=== PATIENT | male | born 1990 | race Caucasian/White ===

== ENCOUNTER 2025-02-12 03:32 | Emergency (ER) | payer BC ==
[~2025-02-12] VITALS: Ht 182.9 cm; Wt 90.7 kg
[2025-02-12] MEDS: LACTATED RINGERS 1000ML IV STA (04:29)
--- NOTE | 2025-02-12 04:41 | ERN ---
General Chief Complaint: Withdrawl Stated Complaint: WITHDRAWL SYMPTOMS FROM ALCOHOL Time Seen by MD: 03:49 Source: patient History of Present Illness Initial Comments Patient is a 34-year-old male with a tension deficit disorder anxiety and depression comes to the ED to get his prescriptions filled and also to withdrawal from alcohol. He has not had an alcoholic beverage for two days and he is starting to feel anxious with nausea and vomiting diarrhea possible hallucinations. He is concerned about having seizures as well. Allergies: Coded Allergies: No Known Allergies (Unverified Allergy, Unknown, 02/12/25) Past Medical History Past Medical History: No Pertinent History, Anxiety, Depression Medical History Other: ADHD, Past Surgical History: None Constitutional: (-) chills, (-) diaphoresis, (-) fever, (-) malaise, (-) weakness, (-) other documentation EENTM: (-) eye pain, (-) blurred vision, (-) tearing, (-) double vision, (-) ear pain, (-) ear discharge, (-) nose pain, (-) nose congestion, (-) throat pain, (-) Throat swelling, (-) mouth pain, (-) tooth pain, (-) mouth swelling, (-) other documentation Respiratory: (-) cough, (-) orthopnea, (-) short of breath, (-) stridor, (-) wheezing, (-) other documentation Cardiovascular: (-) chest pain, (-) edema, (-) palpitations, (-) syncope, (-) dyspnea on exertion, (-) other documentation Gastrointestinal/Abdominal: (+) nausea, (+) vomiting Musculoskeletal: (-) Neck pain, (-) back pain, (-) Flank Pain, (-) joint pain, (-) joint swelling, (-) muscle pain, (-) muscle stiffness, (-) gout, (-) other documentation Skin: (-) laceration, (-) contusion, (-) abrasion, (-) abscess, (-) rash, (-) change in color, (-) change in hair, (-) change in nails, (-) diaphoresis, (-) dryness, (-) other documentation Physical Exam General Appearance: (+) moderate distress Orientation: (+) oriented x 3 Head/Face Trauma: No Eye: bilateral eye normal inspection, bilateral eye PERRL, bilateral eye EOMI Ear, Nose, Throat: (+) hearing grossly normal, (+) normal ENT inspection, (+) moist mucous membraine Neck: (+) normal inspection, (+) supple Respiratory: (+) chest non-tender, (+) lungs clear, (+) well ventilated Heart: (+) regular, (+) no gallop Vascular: (+) no edema, (+) normal peripheral pulse Gastrointestinal: (+) soft, (+) non-tender, (+) bowel sound present Results Laboratory and Microbiology Lab and Micro Result Laboratory Tests Test 02/12/25 04:23 White Blood Count 8.6 K/uL (4.8-10.8) Red Blood Count 4.38 MIL/uL (4.50-6.20) L Hemoglobin 13.4 g/dL (14.0-18.0) L Hematocrit 38.9 % (42-54) L Mean Corpuscular Volume 88.8 fL (79-99) Mean Corpuscular Hemoglobin 30.6 pg (27.0-33.0) Mean Corpuscular Hemoglobin Concent 34.4 g/dL (32.0-36.0) Red Cell Distribution Width 13.2 % (11.0-15.5) Platelet Count 384 K/uL (130-400) Mean Platelet Volume 10.0 fL (7.5-10.5) Immature Granulocyte % (Auto) 0.5 % (0-1) Neutrophils (%) (Auto) 65.6 % (40.0-77.0) Lymphocytes (%) (Auto) 27.4 % (21.0-51.0) Monocytes (%) (Auto) 5.2 % (3.0-13.0) Eosinophils (%) (Auto) 0.5 % (0.0-8.0) Basophils (%) (Auto) 0.8 % (0.0-5.0) Neutrophils # (Auto) 5.7 K/uL (1.8-7.7) Lymphocytes # (Auto) 2.4 K/uL (1.0-4.8) Monocytes # (Auto) 0.5 K/uL (0.1-1.0) Eosinophils # (Auto) 0.04 K/uL (0.00-0.70) Basophils # (Auto) 0.07 K/uL (0.00-0.20) Absolute Immature Granulocyte (auto 0.04 K/uL (0-1) Nucleated Red Blood Cells 0.0 % (0.0-0.19) Sodium Level 139 mmol/L (136-145) Potassium Level 3.4 mmol/L (3.5-5.1) L Chloride Level 102 mmol/L (101-111) Carbon Dioxide Level 28 mmol/L (21-32) Blood Urea Nitrogen 11 mg/dL (7-18) Creatinine 0.9 mg/dL (0.5-1.3) Glomerular Filtration Rate Calc 114 mL/min (>90) Random Glucose 87 mg/dL (70-105) Total Calcium 9.1 mg/dL (8.5-10.1) Total Bilirubin 0.4 mg/dL (0.2-1.0) Aspartate Amino Transf (AST/SGOT) 18 U/L (10-37) Alanine Aminotransferase (ALT/SGPT) 18 U/L (12-78) Alkaline Phosphatase 67 U/L (50-136) Total Protein 7.7 g/dL (6.0-8.3) Albumin 3.8 g/dL (3.5-5.0) Salicylates Level < 2.8 mg/dL (2.8-20.0) L Acetaminophen Level < 1 mcg/mL (10-29) L Serum Alcohol < 3 mg/dL (0-10) MDM We will give the patient some fluids, standard labs + tox screen blood alcohol level acetaminophen and salicylate levels. Give him a single dose of clonazepam and Lexapro. ED Course Orders Procedure Category Date Status Time Citalopram 20 Mg PHA 02/12/25 Complete Tablet (Celexa 20mg 09:00 Ondansetron 4mg Inj PHA 02/12/25 Complete (Zofran 4mg Inj) 04:30 Lactated Ringers PHA 02/12/25 Complete 1000ml (Lactated 04:12 12 Lead Ekg Tracing- EKG 02/12/25 Logged Technical 04:12 Alcohol, Blood LAB 02/12/25 Complete 04:12 Cbc With Differential LAB 02/12/25 Complete 04:12 Comprehensive LAB 02/12/25 Complete Metabolic Panel 04:12 Salicylate LAB 02/12/25 Complete 04:12 Drug Screen Urine LAB 02/12/25 Logged 04:12 Acetaminophen LAB 02/12/25 Complete 04:12 Clonazepam 1mg Tab PHA 02/12/25 Complete (Klonopin 1mg Tab) 04:30 Citalopram 20 Mg PHA 02/12/25 In Process Tablet (Celexa 20mg 04:30 Current Medications Medications (Trade) Dose Ordered Sig/Marvin Route PRN Reason Start Time Stop Time Status Last Admin Dose Admin Citalopram Hydrobromide (CeleXA 20MG TAB) 40 mg DAILY PO 02/12/25 04:30 03/14/25 04:29 02/12/25 04:44 Citalopram Hydrobromide (CeleXA 20MG TAB) 40 mg DAILY PO 02/12/25 09:00 02/12/25 04:30 DC Clonazepam (KLONopin 1MG TAB) 2 mg ONCE ONCE PO 02/12/25 04:30 02/12/25 04:31 DC 02/12/25 04:28 Lactated Ringer's (Lactated Ringers 1000ml) 1,000 ml BOLUS STAT IV 02/12/25 04:12 02/12/25 04:15 DC 02/12/25 04:29 Ondansetron HCl (zoFRAN 4MG INJ) 4 mg ONCE ONCE IVP 02/12/25 04:30 02/12/25 04:31 DC 02/12/25 04:28 Vital Signs Date Time Temp Pulse Resp B/P (MAP) Pulse Ox O2 Delivery O2 Flow Rate FiO2 02/12/25 05:30 67 18 104/68 98 Room Air* 0 21 02/12/25 04:38 62 18 95 Room Air* 0 21 02/12/25 03:34 98.1 90 20 120/73 98 Room Air 0 DX & DISP Disposition: Discharge Departure Impression: Primary Impression: Alcohol withdrawal Condition: Stable Scripts Lisdexamfetamine Dimesylate (Vyvanse) 60 Mg Tab.chew 60 MG PO DAILY, #30 TAB.CHEW Prov: CYNDIE HARPER MD 02/12/25 Clonazepam (Clonazepam) 2 Mg Tab.rapdis 1 TAB PO DAILY for 30 Days, #30 TAB 0 Refills Prov: CYNDIE HARPER MD 02/12/25 Escitalopram Oxalate (Lexapro) 20 Mg Tablet 1 TAB PO DAILY for 30 Days, #30 TAB 0 Refills Prov: CYNDIE HARPER MD 02/12/25 Additional Instructions: Please seek help through meetings and [facility] inpatient rehab facilities here in [place] to assist staying sober. Referrals: SELF,REFERRAL (PCP) CYNDIE HARPER MD Feb 12, 2025 04:41
[2025-02-12 04:57] LABS: IMMATURE GRANULOCYTE ABSOLUTE 0.04 K/uL (0-1); NUCLEATED RED BLOOD CELLS 0.0 % (0.0-0.19); PLATELET COUNT (AUTO) 384 K/uL (130-400); RED BLOOD CELL COUNT(AUTO) 4.38 MIL/uL (4.50-6.20); RED CELL DISTRIBUTION WIDTH 13.2 % (11.0-15.5); WHITE BLOOD COUNT (AUTO) 8.6 K/uL (4.8-10.8)
[2025-02-12 05:07] LABS: CREATININE 0.9 mg/dL (0.5-1.3); GLOMERULAR FILTR. RATE CALC 114 mL/min (>90); GLUCOSE,RANDOM 87 mg/dL (70-105); SODIUM SERUM 139 mmol/L (136-145); UREA NITROGEN, BLOOD 11 mg/dL (7-18)
[2025-02-12 05:10] LABS: ALCOHOL, BLOOD < 3 mg/dL (0-10); ASPARTATE AMINOTRANSFERASE 18 U/L (10-37); TOTAL PROTEIN, SERUM 7.7 g/dL (6.0-8.3)
[2025-02-12 06:22] VITALS: BP 116/76; PULSE 68; RESP 18; TEMP 98.2; O2SAT 98
[2025-02-12] MEDS ORDERED: ESCI20TA PO (06:22)
[2025-02-12] MEDS ORDERED: CLON2TAB21 PO (06:22)
[2025-02-12] MEDS ORDERED: LISD60TA PO (06:22)
--- NOTE | 2025-02-12 06:37 | EKG ---
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
--- NOTE | 2025-02-12 15:54 | NUR ---
LATE NOTE ADDITION; PHARMACY CALLED TO VERIFY PRESCRIPTIONS AND DOSAGES; DOSAGES VERIFIED WITH ED MD DR CLARK. PATIENT NOTIFIED @[phone]
== END 2025-02-12 06:29 | disposition home or self-care (01) ==
LOC: EDBD 03:32 → EDH 03:32
DX: F10.939 Alcohol use, unspecified with withdrawal, unspecified (principal); F41.9 Anxiety disorder, unspecified; F32.A Depression, unspecified; Z79.899 Other long term (current) drug therapy; Y90.0 Blood alcohol level of less than 20 mg/100 ml
CPT/HCPCS: 99284; 96374; 96361; 80053; 85025; 36415; 93005; G0481; J7120; J2405

== ENCOUNTER 2025-06-15 04:23 | Emergency (ER) | payer BC ==
[~2025-06-15] VITALS: Ht 182.9 cm; Wt 90.7 kg
[~2025-06-15 04:23] MED LIST: CLON2TAB21 PO; ESCI20TA PO; LISD60TA PO
[2025-06-15 04:53] VITALS: BP 112/58; PULSE 96; RESP 18; TEMP 98; O2SAT 95
[2025-06-15 04:59] LABS: AMPHET/METH SCREEN,URINE NEGATIVE (NEGATIVE); BARBITURATE SCREEN, URINE NEGATIVE (NEGATIVE); CANNABINOID SCREEN,URINE POSITIVE (NEGATIVE); COCAINE SCREEN,URINE POSITIVE (NEGATIVE)
== END 2025-06-15 05:03 | disposition left against medical advice (07) ==
LOC: EDH 04:23
DX: F10.239 Alcohol dependence with withdrawal, unspecified (principal); Z53.21 Procedure and treatment not carried out due to patient leaving prior to being seen by health care provider; Y90.9 Presence of alcohol in blood, level not specified
CPT/HCPCS: 80305; 99281

== ENCOUNTER 2025-06-17 12:45 | Emergency (ER) | payer BC ==
[~2025-06-17] VITALS: Ht 170.2 cm; Wt 68.0 kg
--- NOTE | 2025-06-17 12:45 | NUR ---
PT WAS BROUGHT IN BY [facility] PT WAS LOUD UNCOOPERATIVE VERBALLY AGRESSIVE AGITATED CRYING NOT WANTING TO BE ASSESSED WANTS TO BE LEFT ALONE WAS BROUGHT IN FOR SUICIDAL AND HOMICIDAL IDEATIONS. UNABLE TO ASSESS PATIENT AT THIS TIME DUE TO BEHAVIOR. SUICIDAL PRECAUTIONS WERE TAKEN AT THIS TIME.
[2025-06-17 12:46] VITALS: BP 116/78; PULSE 95; RESP 20; TEMP 98.3
--- NOTE | 2025-06-17 12:48 | NUR ---
SECURITY [employer] WAS CALLED DUE TO PT VIOLENT BEHAVIOR. UNABLE TO DEESCALATE.
--- NOTE | 2025-06-17 12:55 | NUR ---
[employer] WAS CALLED FOR ASSISTANCE WITH PATIENT THREATENING EMPLOYEE AND STARTED TO SWING. NO INJURY WAS OCCURRED.
[2025-06-17 13:04] LABS: IMMATURE GRANULOCYTE ABSOLUTE 0.03 K/uL (0-1); NUCLEATED RED BLOOD CELLS 0.0 % (0.0-0.19); PLATELET COUNT (AUTO) 372 K/uL (130-400); RED BLOOD CELL COUNT(AUTO) 4.47 MIL/uL (4.50-6.20); RED CELL DISTRIBUTION WIDTH 12.7 % (11.0-15.5); WHITE BLOOD COUNT (AUTO) 9.8 K/uL (4.8-10.8)
--- NOTE | 2025-06-17 13:10 | NUR ---
PATIENT LEFT WITH [facility]
[2025-06-17] MEDS: ZIPRASIDONE MESYLATE 20 MG/VIAL IM ONE ×2 (13:11→13:13)
--- NOTE | 2025-06-17 13:12 | NUR ---
JUST PRIOR TO [employer] OFFICERS LEAVING W/PT, I DID INFORM THEM THAT DR CLARK RECOMMENDED JUST WATCHING THE PT FOR AT LEAST AN HOUR, D/T PT HAVING BEEN GIVEN GEODON/BENADRYL AND KETAMINE IM ABOUT 10-20MINS PRIOR TO [facility] SHOWING UP. OFFICER ANTON WAS GIVEN THE RECOMMENDATION WHILE OFFICER FRANDY WAS LEAVING W/THE PT. OFFICER ANTON STATED IF THEY NEEDED TO RETURN DUE TO ANY RESPIRATORY OR OTHER ISSUES, THEY WOULD. I DID INFORM DR CLARK, DEBRA RN HOUSE AND [employer] DOCTOR OF [facility] WELL PRIMARY NURSE AMANUEL JUNIOR
--- NOTE | 2025-06-17 13:20 | ERN ---
General Chief Complaint: Suicidal Ideation Stated Complaint: SI Time Seen by MD: 12:46 Source: patient History of Present Illness Initial Comments Patient is a 34-year-old male coming in to be evaluated due to suicidal and homicidal ideation. Patient states that he has had multiple family members in his family and does not want to live. Allergies: Coded Allergies: No Known Allergies (Unverified Allergy, Unknown, 02/12/25) Home Meds Active Scripts Lisdexamfetamine Dimesylate (Vyvanse) 60 Mg Tab.chew, 60 MG PO DAILY, #30 TAB.CHEW Prov:CYNDIE HARPER MD 02/12/25 Clonazepam (Clonazepam) 2 Mg Tab.rapdis, 1 TAB PO DAILY for 30 Days, #30 TAB 0 Refills Prov:CYNDIE HARPER MD 02/12/25 Escitalopram Oxalate (Lexapro) 20 Mg Tablet, 1 TAB PO DAILY for 30 Days, #30 TAB 0 Refills Prov:CYNDIE HARPER MD 02/12/25 Past Medical History Past Medical History: Other Medical History Other: PSYCH HX, PT UNCOOPERATIVE Past Surgical History: Unknown ROS Dictation Unable to performed due to patient's not being cooperative Physical Exam Physical Exam Dictation VITAL SIGNS: Reviewed. GENERAL APPEARANCE: Alert, oriented x3, acute distress, HEAD AND FACE: Non-traumatic. EYES: PERRL, pink conjunctivas, eyelid no trauma, anterior chamber clear. EARS: Pinnas intact and no signs of trauma or erythema. Ear canals clear and no discharge. TMs no erythema. NOSE: No discharge, no bleeding. OROPHARYNX: Mouth normal, teeth no caries, tongue pink. Pharynx clear, no erythema. Tonsils no exudates, no abscesses noted. Mucous membrane moist. NECK: Supple, non-tender, no thyromegaly, no masses, no JVD, no bruits. BREAST: Deferred. CHEST: No tenderness, no crepitus, no paradoxical movement, no retractions. LUNGS: Clear, well-ventilated, symmetric, no rales, no wheezing, no rhonchi, no stridor, good breath sounds bilaterally. HEART: Regular rate, regular rhythm, no murmur, no gallops. VASCULAR: No peripheral edema. ABDOMEN: Soft, positive bowel sounds, nondistended, no guarding, nontender, no rebound, no masses no hepatomegaly, no splenomegaly, no Portillo's sign, no hernias. RECTAL: Deferred. GENITAL: Deferred. NEUROLOGICAL: Normal speech, gross motor function intact, gross sensory function intact. MUSCULOSKELETAL: Neck nontender, full range of motion, back nontender, full range of motion. EXTREMITIES: Nontender, full range of motion. SKIN: Color pink, dry, no turgor, no rash, no lacerations, no abrasions, no con tusions. LYMPHATICS: Deferred. Results Laboratory and Microbiology Lab and Micro Result Laboratory Tests Test 06/17/25 12:58 White Blood Count 9.8 K/uL (4.8-10.8) Red Blood Count 4.47 MIL/uL (4.50-6.20) L Hemoglobin 14.1 g/dL (14.0-18.0) Hematocrit 40.1 % (42-54) L Mean Corpuscular Volume 89.7 fL (79-99) Mean Corpuscular Hemoglobin 31.5 pg (27.0-33.0) Mean Corpuscular Hemoglobin Concent 35.2 g/dL (32.0-36.0) Red Cell Distribution Width 12.7 % (11.0-15.5) Platelet Count 372 K/uL (130-400) Mean Platelet Volume 9.2 fL (7.5-10.5) Immature Granulocyte % (Auto) 0.3 % (0-1) Neutrophils (%) (Auto) 65.1 % (40.0-77.0) Lymphocytes (%) (Auto) 25.7 % (21.0-51.0) Monocytes (%) (Auto) 6.7 % (3.0-13.0) Eosinophils (%) (Auto) 1.4 % (0.0-8.0) Basophils (%) (Auto) 0.8 % (0.0-5.0) Neutrophils # (Auto) 6.4 K/uL (1.8-7.7) Lymphocytes # (Auto) 2.5 K/uL (1.0-4.8) Monocytes # (Auto) 0.7 K/uL (0.1-1.0) Eosinophils # (Auto) 0.14 K/uL (0.00-0.70) Basophils # (Auto) 0.08 K/uL (0.00-0.20) Absolute Immature Granulocyte (auto 0.03 K/uL (0-1) Nucleated Red Blood Cells 0.0 % (0.0-0.19) Labs Reviewed?: Yes MDM MDM: Differential diagnosis: Suicidal ideation, homicidal ideation, Rationale: Tests considered and ordered secondary to shared decision making incl ude: Previous outside records reviewed: none Risk of complication and/or morbidity or mortality of patient management: None Medications-Per medication reconciliation: none Need for hospitalization: Patient does meet criteria for hospitalization. Need for emergency major/minor surgery: No There are no social concerns with this patient. Patient is a 34-year-old male coming in due to suicidal ideation and homicidal ideation patient is started being combative threatening hospital staff. Same time he started hitting himself against the wall head 1st and security doors. Anxiolytics were given IM which included Geodon and Benadryl as well as ketamine but patient continued being combative and threatening staff. Law enforcement was notified the arrived at scene per their information patient has been combative for a couple of days before. Patient continued threatening law enforcement and staff he was arrested and taken for public intoxication. Law enforcement were informed of the medications given including doses. ED Course Orders Procedure Category Date Status Time Ziprasidone Mesylate PHA 06/17/25 Complete (Geodon) 12:51 Diphenhydramine Hcl PHA 06/17/25 Complete (Benadryl Inj) 12:53 Cbc With Differential LAB 06/17/25 Complete 12:48 Alcohol, Blood LAB 06/17/25 In Process 12:48 Salicylate LAB 06/17/25 In Process 12:48 Acetaminophen LAB 06/17/25 In Process 12:48 Urinalysis Profile LAB 06/17/25 Logged 12:48 Creatine Kinase, Total LAB 06/17/25 In Process 12:48 Basic Metabolic Panel LAB 06/17/25 In Process 12:48 Drug Screen Urine LAB 06/17/25 Logged 12:48 Ketamine 50mg/Ml PHA 06/17/25 Complete Syringe (Ketamine 12:56 Ketamine 50mg/Ml PHA 06/17/25 Complete Syringe (Ketamine 13:00 Diphenhydramine Hcl PHA 06/17/25 Complete (Benadryl Inj) 13:00 Ziprasidone Mesylate PHA 06/17/25 Complete (Geodon) 13:00 Current Medications Medications (Trade) Dose Ordered Sig/Marvin Route PRN Reason Start Time Stop Time Status Last Admin Dose Admin Diphenhydramine HCl (BENAdryl INJ) 50 mg ONCE ONCE IM 06/17/25 13:00 06/17/25 13:01 DC Diphenhydramine HCl (BENAdryl INJ) 50 mg STK-MED ONCE .ROUTE 06/17/25 12:53 06/17/25 12:53 DC Ketamine HCl (ketaMINE 50MG/ ML SYRINGE) 50 mg STK-MED ONCE .ROUTE 06/17/25 12:56 06/17/25 12:56 DC Ketamine HCl (ketaMINE 50MG/ ML SYRINGE) 100 mg ONCE ONCE IM 06/17/25 13:00 06/17/25 13:02 DC Ziprasidone (Geodon) 20 mg ONCE ONCE IM 06/17/25 13:00 06/17/25 13:03 DC Ziprasidone (Geodon) 20 mg STK-MED ONCE IM 06/17/25 12:51 06/17/25 12:51 DC Vital Signs Date Time Temp Pulse Resp B/P (MAP) Pulse Ox O2 Delivery O2 Flow Rate FiO2 06/17/25 12:46 98.2 95 20 116/78 99 Room Air 0 DX & DISP Disposition: Discharge Departure Impression: Primary Impression: Homicidal ideation Additional Impression: Suicidal ideation Condition: Stable Additional Instructions: FOLLOW-UP WITH PRIMARY CARE PROVIDER IN 1 TO 2 DAYS. TAKE MEDICATIONS DIRECTED HERE IN THE EMERGENCY ROOM. OKAY TO CONTINUE HOME MEDICATIONS UNLESS OTHERWISE DISCUSSED DURING YOUR VISIT IN THE EMERGENCY ROOM TODAY. RETURN TO YOUR NEAREST EMERGENCY ROOM IF SYMPTOMS WORSEN OR IF THERE IS NO IMPROVEMENT. CALL 911 IF YOU NEED IMMEDIATE ASSISTANCE. TAKE TYLENOL [id number] NEEDED AND IF NO CONTRAINDICATIONS ARE PRESENT. INCREASE ORAL HYDRATION. A WOUND CULTURE OR URINE CULTURE WAS ORDERED HERE IN THE EMERGENCY ROOM DEPARTMENT PLEASE FOLLOW-UP WITH PRIMARY CARE PROVIDER AND ADVISE THEM TO GET REPORTS FROM OUR FACILITY. IF YOU HAD ANY KEVIN WRAP/SPLINTS THAT WERE APPLIED HERE, PLEASE DO NOT REMOVE THEM UNTIL YOU SEE YOUR PRIMARY CARE OR SPECIALTY. Referrals: Patient with a discharged has a refused in the medical intervention and was threatening staff physically and verbally law enforcement had to intervene and patient was taken to the police department Referrals: SELF,REFERRAL (PCP) ROBBI ROBBINS MD Time of Disposition: 13:19 SHARON CLARK MD Jun 17, 2025 13:20
[2025-06-17 13:31] LABS: ALCOHOL, BLOOD 151 mg/dL (0-10); CREATININE 0.9 mg/dL (0.5-1.3); GLOMERULAR FILTR. RATE CALC 114 mL/min (>90); GLUCOSE,RANDOM 105 mg/dL (70-105); SODIUM SERUM 142 mmol/L (136-145); UREA NITROGEN, BLOOD 9 mg/dL (7-18)
[2025-06-17 13:39] LABS: CREATINE KINASE, TOTAL 802 U/L (21-232)
== END 2025-06-17 13:15 ==
LOC: EDH 12:45
DX: R45.850 Homicidal ideations (principal); R45.851 Suicidal ideations; Z79.899 Other long term (current) drug therapy
CPT/HCPCS: 99284; 82550; 80048; 85025; 36415; 96372 ×3; G0481; J1200; J3486; J3490